=== PATIENT | male | born 1965 | race Caucasian/White ===

== ENCOUNTER 2017-07-03 14:11 | Day surgery (SDC) | payer BC ==
[~2017-07-03] VITALS: Ht 175.3 cm; Wt 97.3 kg
[2017-07-03 15:18] VITALS: Ht 175.3 cm; Wt 97.3 kg
[2017-07-03] MEDS ORDERED: PROPOFOL 40 ML ONE (15:24)
[2017-07-03 15:29] VITALS: BP 126/78; PULSE 80; RESP 20
--- NOTE | 2017-07-03 16:26 | OPPN ---
Date/Time of Note Date/Time of Note DATE: 07/03/17 TIME: 16:24 Operative Report Preoperative Diagnosis Screening colonoscopy Postoperative Diagnosis 2 small rectal polyps were removed Internal hemorrhoids Operation/Procedure Performed Colonoscopy and biopsy Provider: SUE NAM MD Anesthesia Type: MAC Estimated blood loss: none Transfusion Required: no Specimens Rectal polyps biopsy Grafts/Implants: none Complications: no SUE NAM MD Jul 03, 2017 16:26
[2017-07-03 16:52] VITALS: BP 123/78; PULSE 78; RESP 14
--- NOTE | 2017-07-03 21:34 | GILP ---
DATE OF PROCEDURE: 07/03/2017 PROCEDURE PERFORMED: Colonoscopy and biopsy. SURGEON: Ant Momin MD PREOPERATIVE DIAGNOSIS: Screening colonoscopy. POSTOPERATIVE DIAGNOSES: 1. Colonoscopy all the way to the cecum. 2. Two small rectal polyps were removed using the biopsy forceps. 3. Internal hemorrhoids. INDICATION: The patient is a 51-year-old male patient, who was scheduled for screening colonoscopy. The procedure and possible complications were well explained to the patient. He understood and consented to the procedure. DESCRIPTION OF PROCEDURE: Under influence of anesthesia, the colonoscope was carefully introduced in the rectum and under direct vision it was advanced all the way to the cecum. FINDINGS: The patient had 2 small rectal polyps, and they were removed from the biopsy forceps. The patient had internal hemorrhoids. He tolerated the procedure very well. There were no complications from the procedure. At the end of procedure he was awake with stable vital signs and he was discharged home in the care of his family. IMPRESSION: Please see postop diagnoses. PLAN: Screening colonoscopy in 10 years. Dictated By: MD SARATH Ogden/patriciot/bjc /Document#: [id number]
== END 2017-07-03 16:38 | disposition home or self-care (01) ==
LOC: GIL 14:11
PROVIDERS: ATTEND Internal Medicine Gastroenterology
DX: Z12.11 Encounter for screening for malignant neoplasm of colon (principal); K62.1 Rectal polyp; K64.8 Other hemorrhoids; E11.9 Type 2 diabetes mellitus without complications; E78.5 Hyperlipidemia, unspecified
CPT/HCPCS: 45380; 82962; 88305; Z7610